=== PATIENT | male | born 1985 | race Caucasian/White ===

== ENCOUNTER 2017-11-09 21:42 | Emergency (ER) | payer MEDICAID ==
[~2017-11-09] VITALS: Ht 167.6 cm; Wt 96.9 kg
[2017-11-09 21:44] VITALS: Ht 167.6 cm; Wt 96.9 kg
--- NOTE | 2017-11-10 00:57 | RADRPT ---
PROCEDURE: XR Chest. CLINICAL INDICATION: Cough for 1 month. TECHNIQUE: PA erect view of the chest was obtained. COMPARISON: None. FINDINGS: The cardiomediastinal silhouette is within normal limits. The lungs are clear. There is no evidenc e for pleural effusion, pneumothorax or pulmonary vascular congestion. The osseous structures are i ntact with no evidence for acute abnormality. RPTAT:HJJR IMPRESSION: No evidence for acute intrathoracic pathology. Physician Benja Date Time Electronically viewed and signed by Physician Benja on 11/10/2017 00:56 JR/
[2017-11-10] MEDS ORDERED: LORA10TA3 PO (01:10)
[2017-11-10] MEDS ORDERED: GUAI-637 PO (01:10)
[2017-11-10 01:34] VITALS: PULSE 88; RESP 20; TEMP 98.8
--- NOTE | 2017-11-10 04:19 | ERD ---
ER Documentation Chief Complaint Chief Complaint sore throat x 1 month HPI This is a 32-year-old male presenting to the emergency department for fever, cough, headache, and sore throat 1 month. Patient states he has dry, nonproductive cough for the past 1 month and developed sore throat soon after. No wheezing, shortness breath or difficulty breathing. Reports fever at home 99 F. Has not been taking medications at home. Patient admits to generalized headache. Rates headache 5/10. No visual changes. No blurry vision, loss of vision, floaters or flashes in vision. No weakness or fatigue. Patient admits to sore throat. No difficulty swallowing or drooling. No muffled voice. No earache. No recent travel. ROS All systems reviewed and are negative except as per history of present illness. Medications Home Meds Active Scripts Guaifenesin* (Robitussin*) 100 Mg/5 Ml Syrup, 100 MG PO Q4H Y for COUGH, #120 ML Prov:TIAGO SAUCEDO NP 11/10/17 Loratadine* (Loratadine*) 10 Mg Tablet, 10 MG PO DAILY, #30 TAB Prov:TIAGO SAUCEDO NP 11/10/17 Allergies Allergies: Coded Allergies: No Known Allergy (Unverified , 11/09/17) PMhx/Soc Medical and Surgical Hx: pt denies Medical Hx, pt denies Surgical Hx Hx Alcohol Use: No Hx Substance Use: No Hx Tobacco Use: No Smoking Status: Never smoker Physical Exam Vitals Vital Signs Date Time Temp Pulse Resp B/P Pulse Ox O2 Delivery O2 Flow Rate FiO2 11/10/17 01:34 98.8 88 20 99 Room Air 11/09/17 21:44 98.6 96 20 140/78 97 Physical Exam Const: No acute distress, alert Head: Atraumatic Eyes: Normal Conjunctiva ENT: Normal External Ears, Nose and Mouth. TMs normal bilaterally. No erythema or exudate posterior pharynx. Neck: Full range of motion..~ No meningismus. Resp: Clear to auscultation bilaterally. No wheezing, rhonchi or crackles. No stridor or labored breathing. No intercostal retractions. Patient is talking in complete sentences. No muffled voice. Cardio: Regular rate and rhythm, no murmurs Abd: Soft, non tender, non distended. Normal bowel sounds Skin: No petechiae or rashes Back: No midline or flank tenderness Ext: No cyanosis, or edema Neur: Awake and alert Psych: Normal Mood and Affect Procedures/MDM Patient: RUPERT HENSON : 1985 Age: 32 Sex: M MR #: [id number] DOS: 11/10/17 0019 Ordering MD: TIAGO WHEATLEY NP Location: [facility] Room/Bed: PROCEDURE: XR Chest. CLINICAL INDICATION: Cough for 1 month. TECHNIQUE: PA erect view of the chest was obtained. COMPARISON: None. FINDINGS: The cardiomediastinal silhouette is within normal limits. The lungs are clear. There is no evidence for pleural effusion, pneumothorax or pulmonary vascular congestion. The osseous structures are intact with no evidence for acute abnormality. RPTAT:HJJR IMPRESSION: No evidence for acute intrathoracic pathology. MDM: This is a 32-year-old male presenting to emergency department with fever, cough, headache and sore throat 1 month. Physical exam is unremarkable. Patient has normal long and ENT exam. Patient is afebrile vital signs are stable. No signs or symptoms of respiratory distress. Since patient complains of cough for the last 1 month a chest x-ray was ordered. Chest x-ray reviewed by radiologist as no evidence for acute intrathoracic pathology. Patient appears nontoxic. Patient is not hypoxic. Low suspicion for pneumonia, pleural effusion, pneumothorax or acute NH. Differential diagnosis includes but not limited to URI, influenza, otitis media , otitis externa, asthma exacerbation, croup, bronchitis, bronchiolitis and costochondritis. Patient is appropriate for outpatient management and will be given prescription for Robitussin and loratadine. Instructed patient to follow-up with primary care provider in the next 2-3 days for reassessment and additional management. Return to ED for any high fever, chest pain, difficulty breathing, shortness breath, wheezing, vomiting, diarrhea, abdominal pain or any new or worsening symptoms. Patient verbalizes understanding. All questions answered at discharge. Disclaimer: Inadvertent spelling and grammatical errors are likely due to EHR/ dictation software use and do not reflect on the overall quality of patient care. Also, please note that the electronic time recorded on this note does not necessarily reflect the actual time of the patient encounter. Departure Diagnosis: Primary Impression: URI (upper respiratory infection) URI type: unspecified viral URI Qualified Code: J06.9 - Viral upper respiratory tract infection Condition: Stable Patient Instructions: Uri, Viral, No Abx (Adult) Referrals: [facility] YOU HAVE RECEIVED A MEDICAL SCREENING EXAM AND THE RESULTS INDICATE THAT YOU DO NOT HAVE A CONDITION THAT REQUIRES URGENT TREATMENT IN THE EMERGENCY DEPARTMENT. FURTHER EVALUATION AND TREATMENT OF YOUR CONDITION CAN WAIT UNTIL YOU ARE SEEN IN YOUR DOCTORS OFFICE WITHIN THE NEXT 1-2 DAYS. IT IS YOUR RESPONSIBILITY TO MAKE AN APPOINTMENT FOR FOLOW-UP CARE. IF YOU HAVE A PRIMARY DOCTOR --you should call your primary doctor and schedule an appointment IF YOU DO NOT HAVE A PRIMARY DOCTOR YOU CAN CALL OUR PHYSICIAN REFERRAL HOTLINE AT IF YOU CAN NOT AFFORD TO SEE A PHYSICIAN YOU CAN CHOSE FROM THE FOLLOWING [facility] [address] [facility]. [facility] [address] [facility] [facility] [address] [facility] [address] [facility] [address] [facility]. [facility] [address] [facility]. [facility] YOU HAVE RECEIVED A MEDICAL SCREENING EXAM AND THE RESULTS INDICATE THAT YOU DO NOT HAVE A CONDITION THAT REQUIRES URGENT TREATMENT IN THE EMERGENCY DEPARTMENT. FURTHER EVALUATION AND TREATMENT OF YOUR CONDITION CAN WAIT UNTIL YOU ARE SEEN IN YOUR DOCTORS OFFICE WITHIN THE NEXT 1-2 DAYS. IT IS YOUR RESPONSIBILITY TO MAKE AN APPOINTMENT FOR FOLOW-UP CARE. IF YOU HAVE A PRIMARY DOCTOR --you should call your primary doctor and schedule and appointment IF YOU DO NOT HAVE A PRIMARY DOCTOR YOU CAN CALL OUR PHYSICIAN REFERRAL HOTLINE AT . IF YOU CAN NOT AFFORD TO SEE A PHYSICIAN YOU CAN CHOSE FROM THE FOLLOWING [facility] INSTITUTIONS: [facility] [address] [place] [address] [facility] [address] [place] [address] [facility] [address] [place] [address] Additional Instructions: Call your primary care doctor TOMORROW for an appointment during the next 2-3 days.See the doctor sooner or return here if your condition worsens before your appointment time. Return to ED for any high fever, chest pain, difficulty breathing, shortness breath, wheezing, vomiting, diarrhea, abdominal pain or any new or worsening symptoms. TIAGO SAUCEDO NP Nov 10, 2017 04:19
[2017-11-27] MEDS ORDERED: ONDA-43 PO (23:27)
[2017-11-27] MEDS ORDERED: DICY10CA60 PO (23:28)
[2017-11-27] MEDS ORDERED: FAMO-96 PO (23:28)
== END 2017-11-10 01:30 | disposition home or self-care (01) ==
LOC: FTE 21:42
DX: J06.9 Acute upper respiratory infection, unspecified (principal)
CPT/HCPCS: 71010; Z7502

== ENCOUNTER 2017-11-27 19:04 | Emergency (ER) | END 2017-11-27 23:42 | disposition home or self-care (01) ==

== ENCOUNTER 2018-03-22 06:39 | Emergency (ER) | END 2018-03-22 08:59 | disposition home or self-care (01) ==

== ENCOUNTER 2018-04-06 18:52 | Emergency (ER) | END 2018-04-06 21:09 | disposition home or self-care (01) ==